=== PATIENT | male | born 2000 | race Caucasian/White ===

== ENCOUNTER 2020-05-18 11:35 | Emergency (ER) | payer MEDICAID, SELFPAY ==
[2020-05-18 12:10] VITALS: BP 140/84
[2020-05-18 12:11] VITALS: PULSE 77; O2SAT 100
[2020-05-18 12:20] VITALS: BMI 23.1
--- NOTE | 2020-05-18 12:55 | ED_ITS ---
HPI - Nausea/Vomiting/Diarrhea <LADY Lambert - Last Filed: 05/18/20 21:01> General Chief complaint: Nausea/Vomiting/Diarrhea Stated complaint: ABDOMINAL PAIN, NAUSEA, VOMITING, BLACK STOOLS Time Seen by Provider: 05/18/20 12:21 Source: patient and family Mode of arrival: Family Vehicle Limitations: no limitations History of Present Illness HPI Narrative: This is a 20-year-old male, nonsmoker, who has past medical history significant for consistently smoking cannabis presents to ED with family with chief complain of abdominal pain and nausea, vomiting and diarrhea for 1 week. Patient denies increase in frequency of stools. Patient reports location of abdominal pain is all over. He reports chills but denies fever, urinary symptoms like urgency, frequency, hematuria, or back pain. Patient denies known exposure to Covid 19. Patient reports diarrhea and nausea as slow down last 2-3 days but has not been feeling well and reports fatigue. Patient denies recent antibiotic medication use. Not currently working. Family reports when he gets pain, he rolls around in misery. Patient is able to tolerate some liquids and chicken noodle soup but reports decreased solid p.o. intake. Patient reports also black stools for last couple of days but states has been taking Pepto- Bismol. Patient denies previous abdominal surgeries, known gastric ulcers. Patient is not sure but the symptoms initially started after he had a couple of alcohol drinks a week ago. Patient denies eating bad food. Patient denies other family member has similar symptoms. No recent travel. Patient also reports had nausea and vomiting with regular cannabis use in the past but at that time did not experienced any abdominal pain. He had stop using cannabis about a week ago. No PCP. Related Data Previous Rx's Medication Instructions Recorded ondansetron 4 mg PO Q8H PRN #7 tab 05/18/20 pantoprazole 20 mg PO DAILY #14 tab 05/18/20 sucralfate 1 g PO QACHS 14 Days #56 tab 05/18/20 Allergies Allergy/AdvReac Type Severity Reaction Status Date / Time amoxicillin Allergy Mild Rash Verified 05/18/20 12:24 Review of Systems <LADY Lambert - Last Filed: 05/18/20 21:01> Review of Systems Narrative: General: Denies fever, (+) chills, (+) fatigue, malaise, sweats. HEENT: Denies sinus pain, ear pain, sore throat, difficulty swallowing, dizziness. Respiratory: Denies dyspnea, cough, wheezing, hemoptysis, sputum. Cardiovascular: Denies chest pain, palpitations, orthopnea, edema. Gastrointestinal: See HPI : Denies dysuria, frequency, incontinence, hematuria, urinary retention. Musculoskeletal: Denies weakness, joint pain or bony pain. Skin: Denies rash, skin lesions, or other. Neurologic: Denies weakness, headache, numbness, change in speech, confusion, seizures, incoordination. Psychiatric: No concerning psychosocial issues. 12-point review of systems is negative except for those stated above. Patient History <LADY Lambert - Last Filed: 05/18/20 21:01> Surgical History (Updated 05/18/20 @ 13:01 by LADY Lambert) No pertinent past surgical history Social History Smoking Status: Never smoker Smoking Status: Never smoker alcohol intake frequency: holidays/special occasions only Substance Use Type: marijuana Exam <LADY Lambert - Last Filed: 05/18/20 21:01> Narrative Exam Narrative: GEN: Alert, oriented x 3, well appearing and nourished, and in no acute distress. Head: Normal cephalic, atraumatic. No scalp or temporal tenderness, palpable mass or rash. EYES: Pupils are equal, round, and reactive to light and accommodation. Extraocular muscles are intact bilaterally. There is no subconjunctival hemorrhage, exudate and sclera non-icteric. ENT: Hearing grossly intact. Nose without bleeding, purulent discharge or deviation. Mucous membrane moist, no mucosal lesion. Throat without erythema, tonsillar hypertrophy or exudate. Uvula in midline, airway patent. Neck: Trachea in midline. No JVD, non-tender without lymphadenopathy. No masses or thyroid megaly. Supple, non-tender and no meningeal signs. CARDIAC: Normal regular rate and rhythm without murmurs, gallops, or rubs. No chest wall tenderness. No peripheral edema, cyanosis or pallor. Capillary refill is less than 2 seconds. RESPIRATORY: Lungs are clear to auscultate bilaterally. No cough, wheezes, rales, or rhonchi. No stridor, respiratory distress, increase work of breathing, or accessary muscle used. ABD: Abdomen soft and non-distended. Left upper quadrant tenderness to palpate. No guarding or rebound tenderness to palpate. Bowel sounds are normal in all 4 quadrants. There is no palpable masses or organomegaly. EXT: Full painless ROM of all extremities with no loss of sensation, strength, effusion or edema. SKIN: Warm, dry, normal color for patient. No erythema, lesions or rash over visible areas. BACK: Nontender without deformity or crepitance. No flank tenderness. NEUROLOGICAL: Alert and oriented to place, time and person. Sensation and motor function intact bilaterally. No facial droops, dysphasia. PSYCHIATRIC: Good judgement and reason, without hallucinations, abnormal affect or abnormal behaviors during the examination. Patient is not suicidal. Initial Vital Signs Initial Vital Signs: Vital Signs Blood Pressure 140/84 05/18/20 12:10 <Chasity Whitney DO - Last Filed: 05/23/20 19:18> Initial Vital Signs Initial Vital Signs: Vital Signs Blood Pressure 140/84 05/18/20 12:10 Scores <LADY Lambert - Last Filed: 05/18/20 21:01> GCS Johnathan coma scale eye opening: Spontaneous [place] coma scale verbal response: Orientated Johnathan coma scale motor response: Obey commands Johnathan coma scale total score: 15 qSOFA Altered Mental Status (GCS <15): No Respiratory rate greater than/equal to 22: No Systolic blood pressure less than or equal to 100: No qSOFA Total: 0 0-1 Not High Risk 1-3 High risk Course <LADY Lambert - Last Filed: 05/18/20 21:01> Orders Ordered: Discontinued Medications Sodium Chloride (Normal Saline 0.9%) 1,000 mls @ 999 mls/hr IV CONT ELAINE Last Admin: 05/18/20 13:14 Dose: 999 mls/hr Documented by: ANÍBAL Ondansetron HCl (Ondansetron 4 Mg/2 Ml Inj) 4 mg IV NOW ONE Stop: 05/18/20 12:39 Last Admin: 05/18/20 13:14 Dose: 4 mg Documented by: ANÍBAL Pantoprazole Sodium (Pantoprazole 40 Mg Vial) 40 mg IV NOW ONE Stop: 05/18/20 12:39 Last Admin: 05/18/20 13:14 Dose: 40 mg Documented by: ANÍBAL Reevaluation(s) Reevaluation #1: Patient reports pain resolved and he is no longer nauseated. Considered abdominal/pelvis CT but since patient is feeling much better at this time with shared decision making deferred imaging test at this time. Informed patient if pain recurs or worsens to return to ED and proceed with imaging test at that time. Time: 14:25 Vital Signs Vital signs: Vital Signs - 8 hr 05/18/20 13:22 05/18/20 13:30 05/18/20 14:00 Pulse Rate 52 L 59 L 62 Blood Pressure 129/78 128/79 125/84 Pulse Oximetry 99 98 99 05/18/20 14:30 Pulse Rate 57 L Blood Pressure Pulse Oximetry 97 <Chasity Whitney DO - Last Filed: 05/23/20 19:18> Orders Ordered: Discontinued Medications Sodium Chloride (Normal Saline 0.9%) 1,000 mls @ 999 mls/hr IV CONT ELAINE Last Admin: 05/18/20 13:14 Dose: 999 mls/hr Documented by: ANÍBAL Ondansetron HCl (Ondansetron 4 Mg/2 Ml Inj) 4 mg IV NOW ONE Stop: 05/18/20 12:39 Last Admin: 05/18/20 13:14 Dose: 4 mg Documented by: ANÍBAL Pantoprazole Sodium (Pantoprazole 40 Mg Vial) 40 mg IV NOW ONE Stop: 05/18/20 12:39 Last Admin: 05/18/20 13:14 Dose: 40 mg Documented by: ANÍBAL Vital Signs Vital signs: Vital Signs - 8 hr 05/18/20 13:22 05/18/20 13:30 05/18/20 14:00 Pulse Rate 52 L 59 L 62 Blood Pressure 129/78 128/79 125/84 Pulse Oximetry 99 98 99 05/18/20 14:30 Pulse Rate 57 L Blood Pressure Pulse Oximetry 97 MDM - Nausea/Vomiting/Diarrhea <LADY Lambert - Last Filed: 05/18/20 21:01> Differential Diagnosis Differential diagnosis: Likely food poisoning, gastroenteritis, clostridium difficile infection, drug-induced nausea and vomiting and other (Gastritis, gastric ulcer, colitis, diverticulitis) Medical Records Attestation: I reviewed the patient's medical records. Lab Data Attestation: I reviewed the patient's lab results. Result diagrams: 05/18/20 13:10 05/18/20 13:10 Labs: Lab Results 05/18/20 05/18/20 05/18/20 Range/Units 13:10 13:10 13:10 WBC 6.8 (4.5-11.0) X10^3/uL RBC 5.60 (4.5-5.9) X10^6/uL Hgb 17.1 (13.5-17.5) g/dL Hct 49.6 (41-53) % MCV 88.6 (80-100) fL MCH 30.6 (26-34) PG MCHC 34.5 (30-36) % RDW 12.9 (11.6-14.8) % Plt Count 230 (150-400) X10^3/uL Neut % (Auto) 52.3 (50-75) % Lymph % (Auto) 40.2 H (25-40) % [place] % (Auto) 6.4 (3-14) % Eos % (Auto) 0.7 L (2-4) % Baso % (Auto) 0.4 (0-2) % Neut # (Auto) 3500 (7448-0870) /uL Lymph # (Auto) 2700 (0154-3428) /uL [place] # (Auto) 400 (0-900) /uL Eos # (Auto) 0 (0-450) /uL Baso # (Auto) 0 (0-100) /uL Sodium 141 (137-145) mmol/L Potassium 4.4 (3.4-5.1) mmol/L Chloride 103 (98-107) mmol/L Carbon Dioxide 31 (22-32) mmol/L BUN 14 (9-20) mg/dL Creatinine 1.05 (0.66-1.25) mg/dL Estimated GFR > 60.0 (>60) mL/min BUN/Creatinine Ratio 13.3 (6-22) Glucose 88 (70-100) mg/dL Lactate 1.1 (0.7-2.1) mmol/L Calcium 10.8 H (8.4-10.2) mg/dL Total Bilirubin 0.9 (0.2-1.3) mg/dL AST 20 (17-59) IU/L ALT 13 (<50) IU/L Alkaline Phosphatase 68 (38-126) U/L Total Protein 8.9 H (6.3-8.2) g/dL Albumin 5.1 H (3.5-5.0) g/dL Globulin 3.8 (1.7-4.1) g/dL Albumin/Globulin Ratio 1.3 (1.0-2.8) Lipase 114 (23-300) U/L COVID-19 PCR (Negative) 05/18/20 Range/Units 13:20 WBC (4.5-11.0) X10^3/uL RBC (4.5-5.9) X10^6/uL Hgb (13.5-17.5) g/dL Hct (41-53) % MCV (80-100) fL MCH (26-34) PG MCHC (30-36) % RDW (11.6-14.8) % Plt Count (150-400) X10^3/uL Neut % (Auto) (50-75) % Lymph % (Auto) (25-40) % [place] % (Auto) (3-14) % Eos % (Auto) (2-4) % Baso % (Auto) (0-2) % Neut # (Auto) (7859-7728) /uL Lymph # (Auto) (9839-7083) /uL [place] # (Auto) (0-900) /uL Eos # (Auto) (0-450) /uL Baso # (Auto) (0-100) /uL Sodium (137-145) mmol/L Potassium (3.4-5.1) mmol/L Chloride (98-107) mmol/L Carbon Dioxide (22-32) mmol/L BUN (9-20) mg/dL Creatinine (0.66-1.25) mg/dL Estimated GFR (>60) mL/min BUN/Creatinine Ratio (6-22) Glucose (70-100) mg/dL Lactate (0.7-2.1) mmol/L Calcium (8.4-10.2) mg/dL Total Bilirubin (0.2-1.3) mg/dL AST (17-59) IU/L ALT (<50) IU/L Alkaline Phosphatase (38-126) U/L Total Protein (6.3-8.2) g/dL Albumin (3.5-5.0) g/dL Globulin (1.7-4.1) g/dL Albumin/Globulin Ratio (1.0-2.8) Lipase (23-300) U/L COVID-19 PCR Negative (Negative) Urine Dip Bedside Urine Glucose Negative Bedside Urine Bilirubin - Negative Bedside Urine Ketone - Negative Urine Specific [place] 1.015 Bedside Urine Occult Blood - Negative Bedside Urine pH 7 Bedside Urine Protein - Negative Bedside Urine Urobilinogen - Negative Bedside Urine Nitrite - Negative Bedside Urine Leukocytes - Negative Esterase MDM Narrative Medical decision making narrative: This is a 20 year male who presents to ED with left upper quadrant pain for about a week with nausea and vomiting which improved last 2 days and reports feeling fatigue. Patient does not have a history of colitis or diverticulitis and no blood in emesis. Initial symptoms started after having a couple of alcohol drinks. Patient had frequent episodes of vomiting with smoking marijuana in the past. Physical exam mild tenderness to palpate in left upper quadrant is not consistent with appendicitis. Labs are assuring. No leukocytosis with white count of 6.8. Unremarkable chemistry test with normal kidney function and LFT. Normal lactate of 1.1. Normal lipase of 114. COVID test was negative. Urine test negative for infection or hematuria. Patient was medicated with IV fluid, IV Pantoprazole and Zofran. Considered CT test but deferred at this time in shared decision making since patient's symptoms resolve after the medications and labs does not indicate acute infectious intra-abdominal etiology. Will try outpatient management with pantoprazole and sucralfate to treat for gastritis versus gastric ulcer for couple of weeks. Patient advised to follow-up with primary care physician for re-evaluation and consider endoscopy if symptoms persists. Strict return precautions were discussed with patient and he verbalized the understanding in agreement with the treatment plan. <Chasity Whitney, DO - Last Filed: 05/23/20 19:18> Lab Data Labs: Lab Results 05/18/20 05/18/20 05/18/20 Range/Units 13:10 13:10 13:10 WBC 6.8 (4.5-11.0) X10^3/uL RBC 5.60 (4.5-5.9) X10^6/uL Hgb 17.1 (13.5-17.5) g/dL Hct 49.6 (41-53) % MCV 88.6 (80-100) fL MCH 30.6 (26-34) PG MCHC 34.5 (30-36) % RDW 12.9 (11.6-14.8) % Plt Count 230 (150-400) X10^3/uL Neut % (Auto) 52.3 (50-75) % Lymph % (Auto) 40.2 H (25-40) % [place] % (Auto) 6.4 (3-14) % Eos % (Auto) 0.7 L (2-4) % Baso % (Auto) 0.4 (0-2) % Neut # (Auto) 3500 (9285-5665) /uL Lymph # (Auto) 2700 (9205-8561) /uL [place] # (Auto) 400 (0-900) /uL Eos # (Auto) 0 (0-450) /uL Baso # (Auto) 0 (0-100) /uL Sodium 141 (137-145) mmol/L Potassium 4.4 (3.4-5.1) mmol/L Chloride 103 (98-107) mmol/L Carbon Dioxide 31 (22-32) mmol/L BUN 14 (9-20) mg/dL Creatinine 1.05 (0.66-1.25) mg/dL Estimated GFR > 60.0 (>60) mL/min BUN/Creatinine Ratio 13.3 (6-22) Glucose 88 (70-100) mg/dL Lactate 1.1 (0.7-2.1) mmol/L Calcium 10.8 H (8.4-10.2) mg/dL Total Bilirubin 0.9 (0.2-1.3) mg/dL AST 20 (17-59) IU/L ALT 13 (<50) IU/L Alkaline Phosphatase 68 (38-126) U/L Total Protein 8.9 H (6.3-8.2) g/dL Albumin 5.1 H (3.5-5.0) g/dL Globulin 3.8 (1.7-4.1) g/dL Albumin/Globulin Ratio 1.3 (1.0-2.8) Lipase 114 (23-300) U/L COVID-19 PCR (Negative) 05/18/20 Range/Units 13:20 WBC (4.5-11.0) X10^3/uL RBC (4.5-5.9) X10^6/uL Hgb (13.5-17.5) g/dL Hct (41-53) % MCV (80-100) fL MCH (26-34) PG MCHC (30-36) % RDW (11.6-14.8) % Plt Count (150-400) X10^3/uL Neut % (Auto) (50-75) % Lymph % (Auto) (25-40) % [place] % (Auto) (3-14) % Eos % (Auto) (2-4) % Baso % (Auto) (0-2) % Neut # (Auto) (7600-0836) /uL Lymph # (Auto) (8968-7507) /uL [place] # (Auto) (0-900) /uL Eos # (Auto) (0-450) /uL Baso # (Auto) (0-100) /uL Sodium (137-145) mmol/L Potassium (3.4-5.1) mmol/L Chloride (98-107) mmol/L Carbon Dioxide (22-32) mmol/L BUN (9-20) mg/dL Creatinine (0.66-1.25) mg/dL Estimated GFR (>60) mL/min BUN/Creatinine Ratio (6-22) Glucose (70-100) mg/dL Lactate (0.7-2.1) mmol/L Calcium (8.4-10.2) mg/dL Total Bilirubin (0.2-1.3) mg/dL AST (17-59) IU/L ALT (<50) IU/L Alkaline Phosphatase (38-126) U/L Total Protein (6.3-8.2) g/dL Albumin (3.5-5.0) g/dL Globulin (1.7-4.1) g/dL Albumin/Globulin Ratio (1.0-2.8) Lipase (23-300) U/L COVID-19 PCR Negative (Negative) Urine Dip Bedside Urine Glucose Negative Bedside Urine Bilirubin - Negative Bedside Urine Ketone - Negative Urine Specific [place] 1.015 Bedside Urine Occult Blood - Negative Bedside Urine pH 7 Bedside Urine Protein - Negative Bedside Urine Urobilinogen - Negative Bedside Urine Nitrite - Negative Bedside Urine Leukocytes - Negative Esterase Discharge Plan Departure Patient Disposition: Home Clinical Impression: Gastritis Qualifiers: Gastritis type: unspecified gastritis Chronicity: acute Gastritis bleeding: presence of bleeding unspecified Qualified Code(s): K29.00 - Acute gastritis without bleeding Abdominal pain Qualifiers: Abdominal location: upper abdomen, unspecified Qualified Code(s): R10.10 - Upper abdominal pain, unspecified Instructions: DI for Gastritis, DI for Abdominal Pain-Adult Activity Restrictions/Additional Instructions: You have been diagnosed with [upper abdominal pain likely gastritis. You have received IV fluid, IV medications pantoprazole and Zofran which improved discomfort and nausea. Labs are assuring. No indications for infection with normal electrolytes and lipase. If your symptoms are persistent or worsening, p dewey return to ED. Then, Imaging tests are warrent. ]. What to do: *Take your medications as directed. Please take Zofran as needed for nausea. Please take pantoprazole daily and sucralfate before meals. Please avoid smoking, alcohol drinks, marijuana use, spicy and fatty food, and caffeine products since these can increase discomfort. Hydrate adequately. It meals regularly. This medication have been transmitted to [facility]. *Follow up with your primary care provider in 2-3 days, call for an appointment. Let them know you were seen in the ED and that we asked you to be seen in follow up. You may need a referral for endoscopy if your symptoms persists or worse. *Return to ED if you have any new, worsening, or concerning symptoms, such as [worsening pain, unable to tolerate fluids or medications, chest pain, breathing difficulty, fever, blood in her stools or vomit, or any acute concerns]. Prescriptions: New pantoprazole 20 mg tablet,delayed release (DR/EC) 20 mg PO DAILY Qty: 14 RF: 0 sucralfate 1 gram tablet 1 g PO QACHS 14 Days Qty: 56 RF: 0 ondansetron 4 mg tablet,disintegrating 4 mg PO Q8H PRN (Reason: nausea and vomiting) Qty: 7 RF: 0 Referrals: [facility] [Outside] <Chasity Whitney DO - Last Filed: 05/23/20 19:18> Cosign ED Attending [place] Attestation: I was immediately available in the department for consultation. This documentation has been reviewed and I agree with assessment and plan. Supervised by Chasity Whitney, DO
[2020-05-18] MEDS: PANTOPRAZOLE 40 MG VIAL IV (13:14)
[2020-05-18] MEDS: SODIUM CHLORIDE 0.9% 1,000 ML 999 ML IV (13:14)
[2020-05-18] MEDS: ONDANSETRON 4 MG/2 ML INJ IV (13:14)
[2020-05-18 13:22] VITALS: BP 129/78; PULSE 52; O2SAT 99
[2020-05-18 13:29] LABS: Add Manual Diff / Slide Review NO; Basophils Absolute Auto 0 /uL (0-100); Basophils Percent Auto 0.4 % (0-2); Eosinophils Absolute Auto 0 /uL (0-450); Eosinophils Percent Auto 0.7 % (2-4); Hematocrit 49.6 % (41-53); Hemoglobin 17.1 g/dL (13.5-17.5); Lymphocytes Absolute Auto 2700 /uL (1100-4500); Lymphocytes Percent Auto 40.2 % (25-40); Mean Corpuscular HGB Conc 34.5 % (30-36); Mean Corpuscular Hemoglobin 30.6 PG (26-34); Mean Corpuscular Volume 88.6 fL (80-100); Monocytes Absolute Auto 400 /uL (0-900); Monocytes Percent Auto 6.4 % (3-14); Neutrophils Absolute Auto 3500 /uL (1500-7000); Neutrophils Percent Auto 52.3 % (50-75); Platelet Count 230 X10^3/uL (150-400); Red Cell Distribution Width 12.9 % (11.6-14.8); White Blood Cell Count 6.8 X10^3/uL (4.5-11.0)
[2020-05-18 13:30] VITALS: BP 128/79; PULSE 59; O2SAT 98
[2020-05-18 13:36] LABS: Alanine Aminotransferase 13 IU/L (<50); Albumin 5.1 g/dL (3.5-5.0); Albumin Globulin Ratio 1.3 (1.0-2.8); Alkaline Phosphatase 68 U/L (38-126); Aspartate Aminotransferase 20 IU/L (17-59); BUN Creatinine Ratio 13.3 (6-22); Bilirubin Total 0.9 mg/dL (0.2-1.3); Blood Urea Nitrogen 14 mg/dL (9-20); Calcium 10.8 mg/dL (8.4-10.2); Carbon Dioxide 31 mmol/L (22-32); Chloride 103 mmol/L (98-107); Estimated Glomerular Filt Rate > 60.0 mL/min (>60); Globulin 3.8 g/dL (1.7-4.1); Glucose 88 mg/dL (70-100); HEMOLYSIS < 15 (0-50); Lactate (Lactic Acid) 1.1 mmol/L (0.7-2.1); Lipase 114 U/L (23-300); Potassium 4.4 mmol/L (3.4-5.1); Sodium 141 mmol/L (137-145); Total Protein 8.9 g/dL (6.3-8.2)
[2020-05-18 13:56] LABS: COVID19 -Nasal RAPID Negative (Negative)
[2020-05-18 14:00] VITALS: BP 125/84; PULSE 62; O2SAT 99
[2020-05-18 14:30] VITALS: PULSE 57; O2SAT 97
--- NOTE | 2020-05-26 15:38 | PC.NURSE ---
Late entry: IV NS infused 1415 hours.
== END 2020-05-18 14:52 | disposition home or self-care (01) ==
PROVIDERS: Emergency Provider Nurse Practitioner Family
DX: K29.00 Acute gastritis without bleeding (principal); R10.10 Upper abdominal pain, unspecified; R11.2 Nausea with vomiting, unspecified; R19.7 Diarrhea, unspecified; F12.90 Cannabis use, unspecified, uncomplicated
CPT/HCPCS: 36415; 80053; 81003; 83605; 83690; 85025; 87635; 96361; 96374; 96375; 99281; 99284; C9113; J2405